=== PATIENT | male | born 1980 | race Caucasian/White ===

== ENCOUNTER 2017-06-21 00:26 | Emergency (ER) | payer OTHER ==
[~2017-06-21] VITALS: Ht 185.4 cm; Wt 97.2 kg
[~2017-06-21 00:26] MED LIST: CELE10TA PO; NO HOME MEDS
[2017-06-21] MEDS ORDERED: BUSP10TA (00:49)
[2017-06-21] MEDS ORDERED: BUPR300T34 (00:49)
[2017-06-21 01:10] LABS: BASO % 0.7 % (0.0-1.0); EOS # 0.1 K/mm3 (0.0-0.50); EOS % 0.9 % (0.0-3.0); LARGE UNSTAINED CELL # 0.1 K/mm3 (0.0-0.4); LARGE UNSTAINED CELL % 1.2 % (0.0-4.0); LYMPH # 1.2 K/mm3 (1.5-4.5); LYMPH % 14.4 % (24.0-44.0); MEAN CORPUSCULAR HEMOGLOBIN 32.4 pg (27.0-33.0); MONO # 0.2 K/mm3 (0.0-0.8); MONO % 3.1 % (0.0-5.0); NEUTROPHILS % 79.8 % (36.0-66.0); PLATELET COUNT, AUTOMATED 206 k/mm3 (150-450); RED CELL DISTRIBUTION WIDTH 12.7 % (11.5-14.5); WHITE BLOOD COUNT 7.5 K/mm3 (4.0-10.0)
[2017-06-21 01:39] LABS: ALBUMIN 4.4 GM/DL (3.2-5.2); ALBUMIN/GLOBULIN RATIO 1.19 (1.00-1.93); ALKALINE PHOSPHATASE 92 U/L (45-117); ALT/SGPT 136 U/L (12-78); ANION GAP 10 MEQ/L (8-16); AST/SGOT 147 U/L (15-37); BILIRUBIN,DIRECT 0.2 MG/DL (0.0-0.2); BILIRUBIN,TOTAL 0.5 MG/DL (0.2-1.0); BLOOD UREA NITROGEN 7 MG/DL (7-18); CARBON DIOXIDE LEVEL 26 MEQ/L (21-32); CHLORIDE LEVEL 102 MEQ/L (98-107); CREATININE FOR GFR 0.76 MG/DL (0.70-1.30); GLOMERULAR FILTRATION RATE > 60.0 (>60); GLUCOSE, FASTING 114 MG/DL (70-105); POTASSIUM SERUM 3.6 MEQ/L (3.5-5.1); SODIUM LEVEL 138 MEQ/L (136-145); TOTAL PROTEIN 8.1 GM/DL (6.4-8.2)
[2017-06-21] MEDS ORDERED: ISOVUE-370 76% 100ML VIAL (Q9967) As Ordered ONE (01:45)
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
[2017-06-21] MEDS ORDERED: TETANUS/DIPHTHERIA TOX ADSORB ADULT 0.5ML SYR/VIAL (90714) IM ONE (03:45)
[2017-06-21] MEDS ORDERED: OXYMETAZOLINE NASAL SPRAY (AFRIN) ONE (03:45)
[2017-06-21] MEDS ORDERED: LIDOCAINE 1% MDV 20ML VIAL As Ordered ONE (05:14)
[2017-06-21] MEDS ORDERED: AUGM875T28 PO (06:39)
[2017-06-21 07:15] VITALS: BP 114/62
[2017-06-21] MEDS ORDERED: IBUPROFEN 600 MG TAB PO ONE (07:15)
--- NOTE | 2017-06-21 08:27 | REP ---
Right hand four views : There is no fracture or dislocation. Mineralization and joint spaces are normal. There are no calcifications or foreign bodies. Impression: Negative right hand . Signed by Spenser Zaldivar MD 06/21/2017 08:17 A
--- NOTE | 2017-06-21 08:27 | REP ---
Right elbow for views : There is no fracture or dislocation. Mineralization and joint spaces are normal. There are no calcifications or foreign bodies. Impression: Negative right elbow. An intravenous infusion cannula is incidentally identified. Signed by Spenser Zaldivar MD 06/21/2017 08:17 A
== END 2017-06-21 07:30 | disposition home or self-care (01) ==
LOC: M ED 00:26
DX: S02.2XXA Fracture of nasal bones, initial encounter for closed fracture (principal); S01.21XA Laceration without foreign body of nose, initial encounter; Y04.8XXA Assault by other bodily force, initial encounter; Y92.008 Other place in unspecified non-institutional (private) residence as the place of occurrence of the external cause; Y93.89 Activity, other specified; Y99.8 Other external cause status; E16.2 Hypoglycemia, unspecified; Z87.891 Personal history of nicotine dependence; F19.21 Other psychoactive substance dependence, in remission
CPT/HCPCS: 36415; 70450; 70486; 71260; 72125; 73080; 73130; 74177; 80048; 80076; 85025; 90471; 90714; 99284; G0480; Q9967

== ENCOUNTER → 2018-03-20 | Outpatient (CLI) | payer OTHER | LOC: M WUC 15:06 | DX: S30.0XXA Contusion of lower back and pelvis, initial encounter (principal); S70.00XA Contusion of unspecified hip, initial encounter; X58.XXXA Exposure to other specified factors, initial encounter; Y92.89 Other specified places as the place of occurrence of the external cause | CPT/HCPCS: 72100 ==

== ENCOUNTER → 2025-09-28 | Outpatient (CLI) | payer OTHER ==
[~2025-09-28] MED LIST changes: +AUGM875T28 PO; +BUPR-766; +BUSP10TA
== END ==
LOC: M PLARAD 08:47
PROVIDERS: ATTEND Nurse Practitioner Family
DX: M47.27 Other spondylosis with radiculopathy, lumbosacral region (principal); M48.07 Spinal stenosis, lumbosacral region; M51.26 Other intervertebral disc displacement, lumbar region; M51.369 Other intervertebral disc degeneration, lumbar region without mention of lumbar back pain or lower extremity pain; M89.38 Hypertrophy of bone, other site; N28.1 Cyst of kidney, acquired

== ENCOUNTER → 2025-10-16 | Outpatient (REF) | LOC: M PLAIMG 15:03 | PROVIDERS: ATTEND Internal Medicine | DX: R52 Pain, unspecified (principal) ==